=== PATIENT | female | born 1940 | race Caucasian/White ===

== ENCOUNTER → 2021-01-22 10:42 | Outpatient (BNVA) | payer MEDICARE, SELFPAY | PROVIDERS: PCP Internal Medicine; Visit Provider Hospitalist | DX: J45.909 Unspecified asthma, uncomplicated (principal); G47.33 Obstructive sleep apnea (adult) (pediatric); Z99.89 Dependence on other enabling machines and devices | CPT/HCPCS: 99212 ==

== ENCOUNTER 2023-03-04 10:23 | Outpatient (AMB) | payer MEDICARE, SELFPAY ==
--- NOTE | 2023-03-04 10:32 | MHC.OFFVIS ---
Intake Vital Signs 03/04/23 10:35 Weight 304 lb 3.806 oz BP 120/62 Blood Pressure Location Lt radial Position Sitting Pulse 77 Pulse Source Pulse Oximeter Pulse Oximetry (%) 93 Oxygen Delivery Method Room Air Intake Visit Reasons: Obstructive sleep apnea Intake Note: reports her CPAP machine is not working Allergies aspirin Allergy (Severe, Verified 03/04/23 10:38) Patient on coumadin celecoxib [Celebrex] Allergy (Severe, Verified 03/04/23 10:38) GI Upset Medication List - Last Reconciled 03/04/23 by Carrol Abarca LPN albuterol sulfate 90 mcg/actuation (ProAir HFA) 2 puffs inhalation Q6H PRN ascorbic acid (vitamin C) mg PO fluticasone propion-salmeterol 500-50 mcg/dose (Wixela Inhub) 1 inh inhalation BID 90 days fluticasone propion-salmeterol 500-50 mcg/dose (Advair Diskus) 1 inh inhalation BID furosemide 20 mg PO BID levothyroxine 125 mcg PO DAILY metoprolol succinate ER (Toprol XL) 50 mg PO DAILY omeprazole 20 mg PO BID potassium chloride ER 10 mEq PO BID warfarin 5 mg PO DAILY HPI HPI Comments History of Present Illness Details 01/22/2021 the patient is a 80-year-old woman with a known history of obstructive sleep apnea on CPAP in addition to asthma. she has responded well to Trelegy but he was very expensive. So currently she is taking Advair which is also very expensive for her. She cannot take it daily due to the fact that is too expensive. She does not have a rescue inhaler. She would like to hold off on getting 1 as well. She is worried about the cost. I will send her Wixela hoping that the generic Advair would be better option for her and so therefore she can take it daily. Can also provided with a rescue inhaler if she does decide. In regards her CPAP the CPAP therapy for her has been affecting beneficial. She does use it more than 4 hours a night. at this point the patient will continue with current therapy will switch over to Wixela and plan to follow-up in a year's time. When she does return plan to do a chest x-ray and pulmonary function studies per if however her symptoms worsen then we can also readdress and re-evaluate and earlier time. 03/04/2023 the patient is here for pulmonary follow-up visit. She is been having difficulties with her CPAP machine. It is been message in her that the engine is malfunctioning. Therefore the CPAP machine is broken beyond repair. She is a [employer], [employer]. Will request a replacement machine at this time. From a respiratory status the patient is doing well. She does have Advair at home. She does have issues with the cost. Will go ahead and send a prescription over to the pharmacy. However, if is too expensive will send generic either Wixela or AirDuo. I had requested a chest x-ray and also PFTs but the patient has not had them as of yet. The patient continues to have some dyspnea on exertion. [id number] severity. Also noticed some lower extremity edema. For now she will continue with low-sodium diet and also on diuretics. Will follow-up in 6 months. I did request that she can bring her new machine in order to adjusted if needed. [facility] Medical History (Updated 03/04/23 @ 10:56 by Joel Gaston MD) YOLANDA on CPAP Asthma Social History (Updated 01/22/21 @ 11:11 by MARINA Guerrero) Patient Tobacco Use Status: Never used Tobacco Review of Systems Const Denies night sweats and Reports weight gain ENT Denies change in voice, Denies lip swelling, Denies mouth pain, Reports nasal congestion, Reports nasal discharge and Denies tongue swelling Card Denies chest pain and Reports dyspnea on exertion Resp Reports cough and Reports dyspnea on exertion GI Denies abdominal pain Musc Reports arthralgias, Reports joint swelling and Reports limited range of motion Neuro Denies Neuro-related abnormal movements Psych Denies no additional complaints Brian/Lymph Denies easy bleeding and Denies lymphadenopathy Aller/Immun Denies lip swelling and Denies tongue swelling Physical Exam Vital Signs: Last Vital Signs Pulse 77 03/04/23 10:35 BP 120/62 03/04/23 10:35 Pulse Ox 93 03/04/23 10:35 Oxygen Delivery Method Room Air 03/04/23 10:35 Const General: alert Neck Neck: Yes normal visual inspection, Yes full ROM and Yes no lymphadenopathy Chest Chest palpation & inspection: normal inspection of the chest Resp Auscultation: diminished lung sounds Cardio Rate: regular rate Rhythm: regular rhythm Heart sounds: S1 normal heart sound present and S2 normal heart sound present GI Palpation (GI): Soft to palpation and nontender Auscultation: normal bowel sounds Skin General skin exam: rashes and/or lesions noted Assessment & Plan Assessment & Plan (1) Asthma: Code(s): J45.909 - Unspecified asthma, uncomplicated Qualifiers: Asthma complication type: uncomplicated Asthma persistence: persistent Asthma severity: moderate Qualified Code(s): J45.40 - Moderate persistent asthma, uncomplicated (2) YOLANDA on CPAP: Code(s): G47.33 - Obstructive sleep apnea (adult) (pediatric); Z99.89 - Dependence on other enabling machines and devices Plan continue Advair consider short-acting beta agonist continue CPAP therapy, current machine no longer functioning/engine trouble, will request a replacement APAP from her [facility] FELDMAN follow-up in 6 months Medications: New fluticasone propion-salmeterol 250-50 mcg/dose (Advair Diskus) 1 inh inhalation BID 90 days 3 ea 3RF J45.909 - Unspecified asthma, uncomplicated Coding Level of Care Code Est Pt Level 4 (87944) Diagnoses Moderate persistent asthma without complication J45.40 Asthma complication type: uncomplicated Asthma persistence: persistent Asthma severity: moderate YOLANDA on CPAP G47.33; Z99.89 Time Spent (min) 16
[2023-03-04 10:35] VITALS: BP 120/62; PULSE 77; O2SAT 93
== END 2023-03-04 11:07 | disposition home or self-care (01) ==
PROVIDERS: PCP Internal Medicine; Visit Provider Hospitalist
DX: J45.40 Moderate persistent asthma, uncomplicated (principal); G47.33 Obstructive sleep apnea (adult) (pediatric); Z99.89 Dependence on other enabling machines and devices
CPT/HCPCS: 99214

== ENCOUNTER → 2023-03-04 10:23 | Outpatient (BNVA) | payer MEDICARE, SELFPAY | PROVIDERS: PCP Internal Medicine; Visit Provider Hospitalist | DX: J45.40 Moderate persistent asthma, uncomplicated (principal); G47.33 Obstructive sleep apnea (adult) (pediatric); J45.909 Unspecified asthma, uncomplicated; Z79.01 Long term (current) use of anticoagulants; Z99.89 Dependence on other enabling machines and devices | CPT/HCPCS: 99212 ==

== ENCOUNTER 2023-09-07 10:40 | Outpatient (AMB) | payer MEDICARE, SELFPAY ==
[2023-09-07 10:56] VITALS: PULSE 73; O2SAT 94
--- NOTE | 2023-09-07 10:56 | MHC.OFFVIS ---
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 she has responded well to Trelegy but he was very expensive. So currently she is taking Advair which is also very expensive for her. She cannot take it daily due to the fact that is too expensive. She does not have a rescue inhaler. She would like to hold off on getting 1 as well. She is worried about the cost. I will send her Wixela hoping that the generic Advair would be better option for her and so therefore she can take it daily. Can also provided with a rescue inhaler if she does decide. In regards her CPAP the CPAP therapy for her has been affecting beneficial. She does use it more than 4 hours a night. at this point the patient will continue with current therapy will switch over to Wixela and plan to follow-up in a year's time. When she does return plan to do a chest x-ray and pulmonary function studies per if however her symptoms worsen then we can also readdress and re-evaluate and earlier time. 03/04/2023 the patient is here for pulmonary follow-up visit. She is been having difficulties with her CPAP machine. It is been message in her that the engine is malfunctioning. Therefore the CPAP machine is broken beyond repair. She is a [employer], [facility] [place]. Will request a replacement machine at this time. From a respiratory status the patient is doing well. She does have Advair at home. She does have issues with the cost. Will go ahead and send a prescription over to the pharmacy. However, if is too expensive will send generic either Wixela or AirDuo. I had requested a chest x-ray and also PFTs but the patient has not had them as of yet. The patient continues to have some dyspnea on exertion. Pivg-po-ztvysjbu severity. Also noticed some lower extremity edema. For now she will continue with low-sodium diet and also on diuretics. Will follow-up in 6 months. I did request that she can bring her new machine in order to adjusted if needed. 09/07/2023 the patient is here for a pulmonary follow-up visit. Overall the patient has been doing well. She did recently lose her in therefore she is still grieving some. Meantime respiratory cary she is doing okay. She has been still using her Advair Diskus. She only uses once a day which is fine. When she runs out of that she knows she needs to switch over to Wixela. I will give her a prescription on paper and she can get at the pharmacy whenever she is ready. She should do that once a day. She does not have a rescue inhaler at this point she does not want 1. She has not had imaging studies and well. I did offer her to get an x-ray but she would like to hold off at this time since she is doing well. If she has any respiratory symptoms she will call though that me know. In the meantime she has been using her CPAP at nighttime. The CPAP therapy has been affecting beneficial she does use it for more than 4 hours a night. The patient does use a fullface mask and get supplies from her [employer], [facility]. [facility] Medical History (Updated 03/04/23 @ 10:56 by Joel Gaston MD) YOLANDA on CPAP Asthma Social History (Updated 01/22/21 @ 11:11 by MARINA Guerrero) Patient Tobacco Use Status: Never used Tobacco Review of Systems Const Denies night sweats and Reports weight gain ENT Denies change in voice, Denies lip swelling, Denies mouth pain, Reports nasal congestion, Reports nasal discharge and Denies tongue swelling Card Denies chest pain and Reports dyspnea on exertion Resp Reports cough and Reports dyspnea on exertion GI Denies abdominal pain Musc Reports arthralgias, Reports joint swelling and Reports limited range of motion Neuro Denies Neuro-related abnormal movements Psych Denies no additional complaints Brian/Lymph Denies easy bleeding and Denies lymphadenopathy Aller/Immun Denies lip swelling and Denies tongue swelling Physical Exam Vital Signs: Last Vital Signs Pulse 73 09/07/23 10:56 Pulse Ox 94 09/07/23 10:56 Oxygen Delivery Method Room Air 09/07/23 10:56 Const General: alert Neck Neck: Yes normal visual inspection, Yes full ROM and Yes no lymphadenopathy Chest Chest palpation & inspection: normal inspection of the chest Resp Auscultation: diminished lung sounds Cardio Rate: regular rate Rhythm: regular rhythm Heart sounds: S1 normal heart sound present and S2 normal heart sound present GI Palpation (GI): Soft to palpation and nontender Auscultation: normal bowel sounds Skin General skin exam: rashes and/or lesions noted Assessment & Plan Assessment & Plan (1) Asthma: Code(s): J45.909 - Unspecified asthma, uncomplicated Category: Medical Qualifiers: Asthma complication type: uncomplicated Asthma persistence: persistent Asthma severity: moderate Qualified Code(s): J45.40 - Moderate persistent asthma, uncomplicated (2) YOLANDA on CPAP: Code(s): G47.33 - Obstructive sleep apnea (adult) (pediatric); Z99.89 - Dependence on other enabling machines and devices Category: Medical Plan continue Advair/wixela consider short-acting beta agonist continue CPAP therapy, current machine no longer functioning/engine trouble, will request a replacement APAP from her [facility] FELDM[facility] pt declined CXR at this time follow-up in 12 months Orders: Orders XR chest 2V Today J45.40 - Moderate persistent asthma, uncomplicated Medications: New fluticasone propion-salmeterol 250-50 mcg/dose (Wixela Inhub) 1 inh inhalation Q12H 60 ea 11RF 30 days Coding Level of Care Code Est Pt Level 4 (57999) Diagnoses Moderate persistent asthma without complication J45.40 Asthma complication type: uncomplicated Asthma persistence: persistent Asthma severity: moderate YOLANDA on CPAP G47.33; Z99.89 Time Spent (min) 17
== END 2023-09-07 11:15 | disposition home or self-care (01) ==
PROVIDERS: PCP Internal Medicine; Visit Provider Hospitalist
DX: J45.40 Moderate persistent asthma, uncomplicated (principal); G47.33 Obstructive sleep apnea (adult) (pediatric); Z99.89 Dependence on other enabling machines and devices
CPT/HCPCS: 99214

== ENCOUNTER → 2023-09-07 10:40 | Outpatient (BNVA) | payer MEDICARE, SELFPAY | PROVIDERS: PCP Internal Medicine; Visit Provider Hospitalist | DX: G47.33 Obstructive sleep apnea (adult) (pediatric) (principal); J45.40 Moderate persistent asthma, uncomplicated; Z99.89 Dependence on other enabling machines and devices | CPT/HCPCS: 99212 ==

== ENCOUNTER 2024-09-07 10:42 | Outpatient (AMB) | payer MEDICARE, SELFPAY ==
[2024-09-07 10:49] VITALS: BP 130/64; PULSE 67; O2SAT 95; BMI 56.2
--- NOTE | 2024-09-07 10:49 | A.OFFVIS_ITS ---
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 she has responded well to Trelegy but he was very expensive. So currently she is taking Advair which is also very expensive for her. She cannot take it daily due to the fact that is too expensive. She does not have a rescue inhaler. She would like to hold off on getting 1 as well. She is worried about the cost. I will send her Wixela hoping that the generic Advair would be better option for her and so therefore she can take it daily. Can also provided with a rescue inhaler if she does decide. In regards her CPAP the CPAP therapy for her has been affecting beneficial. She does use it more than 4 hours a night. at this point the patient will continue with current therapy will switch over to Wixela and plan to follow-up in a year's time. When she does return plan to do a chest x-ray and pulmonary function studies per if however her symptoms worsen then we can also readdress and re-evaluate and earlier time. 03/04/2023 the patient is here for pulmonary follow-up visit. She is been having difficulties with her CPAP machine. It is been message in her that the engine is malfunctioning. Therefore the CPAP machine is broken beyond repair. She is a [employer], [employer]. Will request a replacement machine at this time. From a respiratory status the patient is doing well. She does have Advair at home. She does have issues with the cost. Will go ahead and send a prescription over to the pharmacy. However, if is too expensive will send generic either Wixela or AirDuo. I had requested a chest x-ray and also PFTs but the patient has not had them as of yet. The patient continues to have some dyspnea on exertion. Exxp-fc-[id number] severity. Also noticed some lower extr emity edema. For now she will continue with low-sodium diet and also on diuretics. Will follow-up in 6 months. I did request that she can bring her new machine in order to adjusted if needed. 09/07/2023 the patient is here for a pulmonary follow-up visit. Overall the patient has been doing well. She did recently lose her in therefore she is still grieving some. Meantime respiratory cary she is doing okay. She has been still using her Advair Diskus. She only uses once a day which is fine. When she runs out of that she knows she needs to switch over to Wixela. I will give her a prescription on paper and she can get at the pharmacy whenever she is ready. She should do that once a day. She does not have a rescue inhaler at this point she does not want 1. She has not had imaging studies and well. I did offer her to get an x-ray but she would like to hold off at this time since she is doing well. If she has any respiratory symptoms she will call though that me know. In the meantime she has been using her CPAP at nighttime. The CPAP therapy has been affecting beneficial she does use it for more than 4 hours a night. The patient does use a fullface mask and get supplies from her [employer], [employer]. 09/07/2024 the patient is here for pulmonary follow-up visit. Overall the patient has been doing well. She is still grieving the loss of her but overall doing okay. She has been using the CPAP in the CPAP therapy has been affecting beneficial. She does use it for more than 4 hours a night. Her AHI slightly elevated at 4 episodes an hour. Her uses his definitely more than 4 hours a night. The patient will go ahead and have increased pressures with increasing the ramp to 6 in the APAP 8-18. If she has a hard time tolerating the new pressure she can always call and I can adjust them again. Also did adjust her temperature from 80 degrees F to 68 since she does not like the high temperature. She is also running out of water. If she continues to run out of water she can also decrease the humidity. From a respiratory status she is having hard time with breathing feeling some chest tightness and cough. She is having to use her albuterol more often. I will make sure to send a new albuterol in addition to that she responded well to Trelegy in the past. Hopefully is covered better she can go back on Trelegy. If she can not afford the Trelegy did Wixela will be just sufficient. [facility] Medical History (Updated 03/04/23 @ 10:56 by Joel Gaston MD) YOLANDA on CPAP Asthma Social History (Updated 09/07/24 @ 10:54 by Lanie Perdomo CMA) Alcohol intake: never Patient Tobacco Use Status: Never used Tobacco Review of Systems Const Denies chills, Reports fatigue, Denies fever(s), Reports weight gain and Denies weight loss ENT Denies dizziness, Denies lip swelling and Denies tongue swelling Card Denies chest pain, Reports leg edema, Denies lightheadedness, Denies palpitations, Reports dyspnea on exertion, Denies orthopnea and Denies other Resp Reports cough and Reports dyspnea on exertion GI Denies hematochezia and Denies change in stool character Musc Denies abnormal gait, Denies muscle weakness, Denies numbness, Denies radiating pain into limb and Denies tingling Neuro Denies abnormal gait, Denies dizziness, Denies numbness and Denies tingling Psych Denies no additional complaints Endo Reports fatigue and Denies palpitations Brian/Lymph Denies easy bleeding and Denies lymphadenopathy Aller/Immun Denies lip swelling and Denies tongue swelling Physical Exam Vital Signs: Last Vital Signs Pulse 67 09/07/24 10:49 BP 130/64 09/07/24 10:49 Pulse Ox 95 09/07/24 10:49 Oxygen Delivery Method Room Air 09/07/24 10:49 BMI result Body Mass Index 56.2 Const General: alert Neck Neck: Yes normal visual inspection, Yes full ROM and Yes no lymphadenopathy Chest Chest palpation & inspection: normal inspection of the chest Resp Auscultation: diminished lung sounds Cardio Rate: regular rate Rhythm: regular rhythm Heart sounds: S1 normal heart sound present and S2 normal heart sound present GI Palpation (GI): Soft to palpation and nontender Auscultation: normal bowel sounds Skin General skin exam: rashes and/or lesions noted Assessment & Plan Assessment & Plan (1) Asthma: Code(s): J45.909 - Unspecified asthma, uncomplicated Category: Medical Qualifiers: Asthma complication type: uncomplicated Asthma persistence: persistent Asthma severity: moderate Qualified Code(s): J45.40 - Moderate persistent asthma, uncomplicated (2) YOLANDA on CPAP: Code(s): G47.33 - Obstructive sleep apnea (adult) (pediatric); Z99.89 - Dependence on other enabling machines and devices Category: Medical Plan stop wixela start Trelegy start short-acting beta agonist as needed continue CPAP therapy, increase 6-16 to 8-18 pt declined CXR at this time follow-up in 12 months Medications: New gmzbpxjleuh-ajgotivet-rxwvnbjv 200-62.5-25 mcg (Trelegy Ellipta) 1 inh inhalation DAILY 60 ea 12RF 30 days Changed From albuterol sulfate 90 mcg/actuation (ProAir HFA) 2 puffs inhalation Q6H PRN To albuterol sulfate 90 mcg/actuation 2 puffs inhalation Q6H PRN 8.5 grams 7RF shortness of breath or wheezing Coding Level of Care Code Est Pt Level 4 (48040) Complex EM visit Add On G2211 Diagnoses Moderate persistent asthma without complication J45.40 Asthma complication type: uncomplicated Asthma persistence: persistent Asthma severity: moderate YOLANDA on CPAP G47.33; Z99.89 Time Spent (min) 17
--- OUTSIDE RECORDS SUMMARY | 2024-09-07 12:19 | XMS_ITS | Clinical Summary ---
Author Organization [address] [place] [address] [place] [phone] Phone Care Team Providers Care Disability Benefits Specialist Name Role Phone Homer Taylor DO Primary Care Provider [phone] Allergies Active Allergy Reactions Criticality Noted Date Comments Celecoxib 08/18/2024 Medications multivitamin tablet Take 1 tablet by mouth 1 (one) time each day. Active aspirin 81 mg chewable tablet Chew 1 tablet (81 mg total) 1 (one) time each day. 90 tablet 2 5 Active furosemide (LASIX) 20 mg tablet Take 1 tablet (20 mg total) by mouth 1 (one) time each day. 180 tablet 3 5 Active levothyroxine (SYNTHROID, LEVOTHROID) 150 mcg tablet Take 1 tablet (150 mcg total) by mouth 1 (one) time each day before breakfast. 90 tablet 3 5 Active metoprolol succinate (TOPROL-XL) 25 mg 24 hr tablet Take 2 tablets (50 mg total) by mouth 1 (one) time each day. Do not crush or chew. 90 tablet 3 5 Active omeprazole (PriLOSEC) [address] capsule Take 1 capsule (20 mg total) by mouth 2 (two) times a day. Do not crush or chew. 90 capsule 3 5 Active warfarin (COUMADIN) 5 mg tablet Take 1 tablet (5 mg total) by mouth 1 (one) time each day with dinner. See admin directions 90 tablet 3 5 Active furosemide (LASIX) 20 mg tablet TAKE 4 TABLETS BY MOUTH EVERY MORNING AND 3 TABLETS EVERY EVENING. 540 tablet 1 5 08/19/19 Discontinu ed(Reorder ) metoprolol succinate (TOPROL-XL) 25 mg 24 hr tablet Take 1 tablet (25 mg total) by mouth 1 (one) time each day. Do not crush or chew. 08/19/19 Discontinu ed(Reorder ) aspirin 81 mg chewable tablet Chew 1 tablet (81 mg total) 1 (one) time each day. 08/19/19 Discontinu ed(Reorder ) warfarin (COUMADIN) 5 mg tablet Take 1 tablet (5 mg total) by mouth 1 (one) time each day with dinner. See admin directions 08/19/19 Discontinu ed(Reorder ) omeprazole (PriLOSEC) [address] capsule Take 1 capsule (20 mg total) by mouth 2 (two) times a day. Do not crush or chew. 08/19/19 Discontinu ed(Reorder ) levothyroxine (SYNTHROID, LEVOTHROID) 150 mcg tablet Take 1 tablet (150 mcg total) by mouth 1 (one) time each day before breakfast. 08/19/19 Discontinu ed(Reorder ) metoprolol succinate (TOPROL-XL) 25 mg 24 hr tablet Take 2 tablets (50 mg total) by mouth 1 (one) time each day. Do not crush or chew. 90 tablet 3 5 08/19/19 Discontinu ed(Reorder ) Active Problems Problem Noted Date Diagnosed Date Chronic diastolic congestive heart failure (CMS/[facility] V24, CMS/[facility] V28) 08/18/2024 Assessment & Plan (08/18/2024 12:55 PM EDT): She appears slightly more breathless compared to a year ago. Volume status appears the same as before. Will continue same dose furosemide. Will check BMP and BNP. Heart failure is mostly due to her morbid obesity which causing patient prosthesis mismatch. Most recent echocardiogram has shown mildly to moderately elevated pulmonary artery pressure. She was prescribed a weight loss medication by Dr. Taylor previously and the prescription was denied by the insurance. I will discuss with Dr. Taylor about the situations. She would benefit from GLP 1 agonist. Orders: ECG 12 lead B-type natriuretic peptide; Future Basic metabolic panel; Future Magnesium; Future Presence of prosthetic heart valve 03/27/2024 Assessment & Plan (08/18/2024 12:55 PM EDT): She is known to have patient prosthesis mismatch for quite many years since her weight has gone way up. We did 2 fluoroscopies including recent one. The valve function itself was normal. The elevated gradient again is from the patient prosthesis mismatch. The willis is the weight loss. She is on warfarin. Encounters Date Type Department Care Team Description 09/01/2024 Anticoagulation - Warfarin Visit [facility] [address] [facility] [address] [place] [address] Mary Roldan MD Presence of prosthetic heart valve (Primary Dx) 08/25/2024 Anticoagulation - Warfarin Visit [facility] [address] [place] [address] Mary Roldan MD Presence of prosthetic heart valve (Primary Dx) 08/18/2024 10:50 AM EDT Office Visit [facility] [address] [place] [address] Mary Roldan MD Chronic diastolic congestive heart failure (CMS/HCC V24, CMS/HCC V28) (Primary Dx); Presence of prosthetic heart valve 08/18/2024 Anticoagulation - Warfarin Visit [facility] [address] [place] [address] Mary Roldan MD Presence of prosthetic heart valve (Primary Dx) 08/14/2024 Anticoagulation - Warfarin Visit [facility] [address] [place] [address] Mary Roldan MD Presence of prosthetic heart valve (Primary Dx) 08/07/2024 Anticoagulation - Warfarin Visit [facility] [address] [place] [address] Mary Roldan MD Presence of prosthetic heart valve (Primary Dx) 07/31/2024 Anticoagulation - Warfarin Visit [facility] [address] [place] [address] Mary Roldan MD Presence of prosthetic heart valve (Primary Dx) 07/24/2024 Anticoagulation - Warfarin Visit [facility] [address] [place] [address] Mary Roldan MD Presence of prosthetic heart valve (Primary Dx) 07/17/2024 Anticoagulation - Warfarin Visit [facility] [address] [place] [address] Mary Roldan MD Presence of prosthetic heart valve (Primary Dx) 07/11/2024 Anticoagulation - Warfarin Visit [facility] [address] [place] [address] Mary Roldan MD Presence of prosthetic heart valve (Primary Dx) 07/03/2024 Anticoagulation - Warfarin Visit [facility] [address] [place] [address] Mary Roldan MD Presence of prosthetic heart valve (Primary Dx) 06/27/2024 Anticoagulation - Warfarin Visit [facility] [address] [place] [address] Mary Roldan MD Presence of prosthetic heart valve (Primary Dx) 06/19/2024 Anticoagulation - Warfarin Visit [facility] [address] [place] [address] Mary Roldan MD Presence of prosthetic heart valve (Primary Dx) 06/12/2024 Anticoagulation - Warfarin Visit [facility] [address] [place] [address] Mary Roldan MD Presence of prosthetic heart valve (Primary Dx) from Last 3 Months Surgical History Surgery Date Site/Laterality Comments AORTIC VALVE REPLACEMENT 1999 PROCEDURE: HISTORICAL AORTIC VALVE REPL TOTAL KNEE ARTHROPLASTY 2009 Right PROCEDURE: SD ARTHRP KNE CONDYLE&PLATU MEDIAL&LAT COMPARTMENTS HYSTERECTOMY PROCEDURE: HISTORICAL TOTAL HYSTERECTOMY WITH BSO APPENDECTOMY PROCEDURE: SD APPENDECTOMY Medical History Medical History Date Comments Hypothyroidism 06/19/2017 DX:Hypothyroidis m S/P aortic valve replacement 06/19/2017 DX: S/P aortic valve replacement; COMMENT: Chronic anticoagulation, st katie valve GERD (gastroesophageal reflux disease) 06/19/2017 DX:GERD (gastroesophageal reflux disease) MVP (mitral valve prolapse) 06/19/2017 DX:M [employer] (mitral valve prolapse) Total knee replacement status 06/19/2017 DX :Total knee replacement status Morbid obesity (CMS/HCC V24, CMS/HCC V28) 06/19/2017 DX:Morbid obesity (HCC) Family History Medical History Relation Name Comments Esophageal cancer Brother Prostate cancer Father Diabetes Mother Breast cancer Sister Relation Name Status Comments Brother Father Mother Sister Social History Tobacco Use Types Packs/Day Years Used Date Smoking Tobacco: Former Smokeless Tobacco: Never Alcohol Use Standard Drinks/Week Comments No 0 (1 standard drink = 0.6 oz pur e alcohol) Comments Unknown Sex and Gender Information Value Date Recorded Sex Assigned at Not on file Legal Sex Female 9:05 PM EST Gender Identity Not on file Sexual Orientation Not on file Obstetrics History Last Filed Vital Signs Vital Sign Reading Time Taken Comments Blood Pressure 130/66 08/18/2024 10:51 AM EDT Pulse 70 08/18/2024 10:51 AM EDT Temperature - - Respiratory Rate - - Oxygen Saturation 95% 08/18/2024 10:51 AM EDT Inhaled Oxygen Concentration - - Weight 139 kg (306 lb) 08/18/2024 10:51 AM EDT Height 152.4 cm (5') 08/18/2024 10:51 AM EDT Body Mass Index 59.76 08/18/2024 10:51 AM EDT Plan of Treatment Upcoming Encounters Date Type Department Care Team (Late st Contact Info) Description 03/05/2025 10:40 AM EDT Office Visit [facility] [address] [facility] [address] [place] [phone] Jill Guy NP [address] [place] [address] Health Maintenance Due Date Last Done Comments Pneumococcal Vaccine: 50+ Years (1 of 2 - PCV) 1961 Zoster Vaccines (1 of 2) 1992 Cholesterol Screening (Lipid Panel) 04/11/2022 Depression Screening 04/11/2022 Falls Risk Assessment 04/11/2022 Medicare Annual Wellness Visit 04/11/2022 Osteoporosis Screening (Bone Density Screening) 04/11/2022 Social Influencers of Health Screening 04/11/2022 COVID-19 Vaccine ( season) 2024 03/12/2021, 07/17/2020, 06/26/2020 Hypertension/CHF/CAD Annual BMP Blood Test 08/18/2025 08/18/2024 DTaP,Tdap,and Td Vaccines (2 - Td or Tdap) 02/19/2032 02/18/2022 RSV Immunization Adult Patients Completed 03/19/2023 Influenza Vaccine Completed 02/17/2024, , 02/18/2022, Additional history exists HIB Vaccines Aged Out No longer eligi ble based on patient's age to complete this topic HPV Vaccines Aged Out No longer eligi ble based on patient's age to complete this topic Hepatitis A Vaccines Aged Out No long er eligible based on patient's age to complete this topic Hepatitis B Vaccines Aged Out No long er eligible based on patient's age to complete this topic IPV Vaccines Aged Out No longer eligi ble based on patient's age to complete this topic MMR Vaccines Aged Out No longer eligi ble based on patient's age to complete this topic Meningococcal ACWY Vaccine Aged Out N o longer eligible based on patient's age to complete this topic Meningococcal B Vaccine Aged Out No l onger eligible based on patient's age to complete this topic RSV Immunization Patients Under 20 months Aged Out No longer eligible based on patient's age to complete this topic Varicella Vaccines Aged Out No longer eligible based on patient's age to complete this topic Procedures Procedure Name Priority Date/Time Associated Diagnosis Comments PROTHROMBIN TIME WITH INR Routine 09/01/2024 PROTHROMBIN TIME WITH INR Routine 08/25/2024 MAGNESIUM Routine 08/18/2024 11:45 AM EDT Chronic diastolic congestive heart failure (CMS/HCC V24, CMS/HCC V28) BASIC METABOLIC PANEL Routine 08/18/2024 11:45 AM EDT Chronic diastolic congestive heart failure (CMS/HCC V24, CMS/HCC V28) B-TYPE NATRIURETIC PEPTIDE Routine 08/18/2024 11:45 AM EDT Chronic diastolic congestive heart failure (CMS/HCC V24, CMS/HCC V28) ECG 12-LEAD Routine 08/18/2024 11:00 AM EDT Chronic diastolic congestive heart failure (CMS/HCC V24, CMS/HCC V28) PROTHROMBIN TIME WITH INR Routine 08/18/2024 PROTHROMBIN TIME WITH INR Routine 08/14/2024 PROTHROMBIN TIME WITH INR Routine 08/07/2024 PROTHROMBIN TIME WITH INR Routine 07/31/2024 PROTHROMBIN TIME WITH INR Routine 07/24/2024 PROTHROMBIN TIME WITH INR Routine 07/17/2024 PROTHROMBIN TIME WITH INR Routine 07/11/2024 PROTHROMBIN TIME WITH INR Routine 07/03/2024 PROTHROMBIN TIME WITH INR Routine 06/27/2024 PROTHROMBIN TIME WITH INR Routine 06/19/2024 PROTHROMBIN TIME WITH INR Routine 06/12/2024 from Last 3 Months Results * Prothrombin time with INR (09/01/2024) Only the most recent of13 resultswithin the time period is included. INR 2.0 Prothrombin Time POC Blood Venous blood specimen / Unknown 09/01/2024 Alisha Hazel MD LAB BLOOD ORDERABLES Gricelda l Result * (ABNORMAL) B-type natriuretic peptide (08/18/2024 11:45 AM EDT) BNP 142(H) <=100 pcg/mL LAB CHEMISTRY METHOD 08/18/2024 1:26 PM EDT [facility] Blood Venous blood specimen / Unknown Venipuncture / Unknown 08/18/2024 11:45 AM EDT 08/18/2024 12:23 PM EDT Mary Roldan MD LAB BLOOD ORDERABLES Final Resul t Performing Organization Address [facility]/ZIP Co de Phone Number [facility] [address] [place] [address], * Magnesium (08/18/2024 11:45 AM EDT) Pathologist [facility] Magnesium 2.3 1.9 - 2.6 mg/dL LAB CHEMISTRY METHOD 08/18/2024 1:37 PM EDT [facility] Blood Venous blood specimen / Unknown Venipuncture / Unknown 08/18/2024 11:45 AM EDT 08/18/2024 12:22 PM EDT Mary Roldan MD LAB BLOOD ORDERABLES Final Resul t [facility] [address] [place] [address], * (ABNORMAL) Basic metabolic panel (08/18/2024 11:45 AM EDT) Pathologist [facility] Sodium 141 133 - 145 mmol/L LAB CHEMISTRY METHOD 08/18/2024 1:37 PM EDT [facility] Potassium 3.9 3.5 - 5.5 mmol/L LAB CHEMISTRY METHOD 08/18/2024 1:37 PM T [facility] Chloride 104 96 - 110 mmol/L LAB CHEMISTRY METHOD 08/18/2024 1:37 PM [facility] CO2 29 21 - 32 mmol/L LAB CHEMISTRY METHOD 08/18/2024 1:37 PM [facility] Anion Gap 8 3 - 11 LAB CHEMISTRY METHOD 08/18/2024 1:37 PM [facility] Glucose 102(H) 70 - 100 mg/dL LAB CHEMISTRY METHOD 08/18/2024 1:37 PM [facility] BUN 15 5 - 25 mg/dL LAB CHEMISTRY METHOD 08/18/2024 1:37 PM [facility] Creatinine 1.13(H) 0.50 - 1.10 mg/dL LAB CHEMISTRY METHOD 08/18/2024 1:37 PM [facility] eGFR 49(L) >=60 mL/min/1. 73m2 LAB CHEMISTRY METHOD 08/18/2024 1:37 PM [facility] Comment:Calculation based on the??Chronic Kidney Disease Epidemiology Collaboration (CKD-EPI) equation refit??without adjustment for race. BUN/Creatinine Ratio 13.3 LAB CHEMISTRY METHOD 08/18/2024 1:37 PM [facility] Calcium 8.6 8.5 - 10.5 mg/dL LAB CHEMISTRY METHOD 08/18/2024 1:37 PM [facility] Blood Venous blood specimen / Unknown Venipuncture / Unknown 08/18/2024 11:45 AM EDT 08/18/2024 12:22 PM EDT us Mary Roldan MD LAB BLOOD ORDERABLES Final Resul t [facility] [address] [place] [address], * ECG 12 lead (08/18/2024 11:00 AM EDT) Ventricular Rate ECG 70 BPM GEMUSE Atrial Rate 70 BPM GEMUSE P-R Interval 386 ms GEMUSE QRS Duration 90 ms GEMUSE Q-T Interval 424 ms GEMUSE QTc 457 ms GEMUSE P Wave Au Train 61 degrees GEMUSE R Au Train 63 degrees GEMUSE T Au Train 72 degrees GEMUSE ECG Interpretation Sinus rhythm with 1st degree A-V block with Premature atrial complexes Otherwise normal ECG When compared with ECG of 26-MAR-2009 15:05, Premature atrial complexes are now Present Confirmed by Enoc ROLDAN YUFENG ([id number]) on 08/18/2024 12:55:54 PM GEMUSE 08/18/2024 11:0 0 AM EDT 08/18/2024 12:55 PM EDT us Mary Roldan MD ECG ORDERABLES Final Result GEMUSE from Last 3 Months Insurance [facility]IC[facility] Care Teams Disability Benefits Specialist Relationship Specialty Start Date End Date Homer Taylor DO [address] [place] [id number] PCP - General Internal Medicine 08/18/24
== END 2024-09-07 11:26 | disposition home or self-care (01) ==
LOC: HO.HPS 10:43
PROVIDERS: PCP Internal Medicine; Visit Provider Hospitalist
DX: J45.40 Moderate persistent asthma, uncomplicated (principal); G47.33 Obstructive sleep apnea (adult) (pediatric); Z99.89 Dependence on other enabling machines and devices
CPT/HCPCS: 99214; G2211

== ENCOUNTER → 2024-09-07 10:42 | Outpatient (BNVA) | payer MEDICARE, SELFPAY | PROVIDERS: PCP Internal Medicine; Visit Provider Hospitalist | DX: J45.40 Moderate persistent asthma, uncomplicated (principal); G47.33 Obstructive sleep apnea (adult) (pediatric); Z99.89 Dependence on other enabling machines and devices | CPT/HCPCS: 99212 ==

== ENCOUNTER 2025-04-02 10:45 | Outpatient (AMB) | payer MEDICARE, SELFPAY ==
[2025-04-02 10:49] VITALS: BP 130/70; PULSE 67; O2SAT 96; BMI 54.0
--- NOTE | 2025-04-02 10:49 | A.OFFVIS_ITS ---
Vital Signs 04/02/25 10:49 Height 5 ft 2 in Weight 295 lb 6.711 oz BMI 54.0 BP 130/70 Blood Pressure Location Lt brachial Position Sitting Pulse 67 Pulse Source Pulse Oximeter Pulse Oximetry (%) 96 Oxygen Delivery Method Room Air Intake Visit Reasons: Obstructive sleep apnea Database Developer Required: No Accompanied by: Self / Same As Patient Allergies aspirin Allergy (Severe, Verified 04/02/25 10:53) Patient on coumadin celecoxib (Celebrex) Allergy (Severe, Verified 04/02/25 10:53) GI Upset HPI Comments Details: The patient is a 84-year-old woman with a known history of obstructive sleep apnea on CPAP in addition to asthma. she has responded well to Trelegy but he was very expensive. So currently she is taking Advair which is also very expensive for her. She cannot take it daily due to the fact that is too expensive. She does not have a rescue inhaler. She would like to hold off on getting 1 as well. She is worried about the cost. I will send her Wixela hoping that the generic Advair would be better option for her and so therefore she can take it daily. Can also provided with a rescue inhaler if she does decide. In regards her CPAP the CPAP therapy for her has been affecting beneficial. She does use it more than 4 hours a night. at this point the patient will continue with current therapy will switch over to Wixela and plan to follow-up in a year's time. When she does return plan to do a chest x-ray and pulmonary function studies per if however her symptoms worsen then we can also readdress and re-evaluate and earlier time. 03/04/2023 the patient is here for pulmonary follow-up visit. She is been having difficulties with her CPAP machine. It is been message in her that the engine is malfunctioning. Therefore the CPAP machine is broken beyond repair. She is a [employer] [employer]. Will request a replacement machine at this time. From a respiratory status the patient is doing well. She does have Advair at home. She does have issues with the cost. Will go ahead and send a prescription over to the pharmacy. However, if is too expensive will send generic either Wixela or AirDuo. I had requested a chest x-ray and also PFTs but the patient has not had them as of yet. The patient continues to have some dyspnea on exertion. [id number] severity. Also noticed some lower extremity edema. For now she will continue with low-sodium diet and also on diuretics. Will follow-up in 6 months. I did request that she can bring her new machine in order to adjusted if needed. 09/07/2023 the patient is here for a pulmonary follow-up visit. Overall the patient has been doing well. She did recently lose her in therefore she is still grieving some. Meantime respiratory cary she is doing okay. She has been still using her Advair Diskus. She only uses once a day which is fine. When she runs out of that she knows she needs to switch over to Wixela. I will give her a prescription on paper and she can get at the pharmacy whenever she is ready. She should do that once a day. She does not have a rescue inhaler at this point she does not want 1. She has not had imaging studies and well. I did offer her to get an x-ray but she would like to hold off at this time since she is doing well. If she has any respiratory symptoms she will call though that me know. In the meantime she has been using her CPAP at nighttime. The CPAP therapy has been affecting beneficial she does use it for more than 4 hours a night. The patient does use a fullface mask and get supplies from her [employer] [employer] [facility] [employer]. 09/07/2024 the patient is here for pulmonary follow-up visit. Overall the patient has been doing well. She is still grieving the loss of her but overall doing okay. She has been using the CPAP in the CPAP therapy has been affecting beneficial. She does use it for more than 4 hours a night. Her AHI slightly elevated at 4 episodes an hour. Her uses his definitely more than 4 hours a night. The patient will go ahead and have increased pressures with increasing the ramp to 6 in the APAP 8-18. If she has a hard time tolerating the new pressure she can always call and I can adjust them again. Also did adjust her temperature from 80 degrees F to 68 since she does not like the high temperature. She is also running out of water. If she continues to run out of water she can also decrease the humidity. From a respiratory status she is having hard time with breathing feeling some chest tightness and cough. She is having to use her albuterol more often. I will make sure to send a new albuterol in addition to that she responded well to Trelegy in the past. Hopefully is covered better she can go back on Trelegy. If she can not afford the Trelegy did Wixela will be just sufficient. 04/02/2025 the patient is here for pulmonary follow-up visit. Overall the patient is doing well. She continues to tolerate the APAP. The pressure 8-18 seems to work well for her. Although the AHI still slightly elevated to 4 events an hour. She does use a fullface mask and she seems to be tolerating that well. She is resting well in the Jo[place] score is within normal limits. Therefore, I would not adjust the pressures any longer. Seems to be working just fine for her. The last time we adjusted her machine she had difficulties with the so therefore will just leave it alone. From a breathing standpoint she does well with the Trelegy although is expensive. She is currently using Wixela and seems to be working just fine. Will continue the Wixela for now. If her symptoms worsen she wants to use the Trelegy she can always call and I can send her a script. She was wondering about pulmonary rehab. Will go ahead and order pulmonary function studies for the springtime since she does not want to do rehab over the winter. Based on the pulmonary function studies we can then order pulmonary rehab for her. Otherwise the patient is doing well will follow- up in the spring if any issues arise she can always call for an earlier evaluation and recommendations. [facility] Medical History (Updated 03/04/23 @ 10:56 by Joel Gaston MD) YOLANDA on CPAP Asthma Social History Alcohol intake: never Patient Tobacco Use Status: Never used Tobacco Review of Systems Const Denies chills, Reports fatigue, Denies fever(s), Reports weight gain and Denies weight loss ENT Denies dizziness, Denies lip swelling and Denies tongue swelling Card Denies chest pain, Reports leg edema, Denies lightheadedness, Denies palpitations, Reports dyspnea on exertion, Denies orthopnea and Denies other Resp Reports cough and Reports dyspnea on exertion GI Denies hematochezia and Denies change in stool character Musc Denies abnormal gait, Denies muscle weakness, Denies numbness, Denies radiating pain into limb and Denies tingling Neuro Denies abnormal gait, Denies dizziness, Denies numbness and Denies tingling Psych Denies no additional complaints Endo Reports fatigue and Denies palpitations Brian/Lymph Denies easy bleeding and Denies lymphadenopathy Aller/Immun Denies lip swelling and Denies tongue swelling Physical Exam Vital Signs: Last Vital Signs Pulse 67 04/02/25 10:49 BP 130/70 04/02/25 10:49 Pulse Ox 96 04/02/25 10:49 Oxygen Delivery Method Room Air 04/02/25 10:49 BMI result Body Mass Index 54.0 Const General: alert Neck Neck: Yes normal visual inspection, Yes full ROM and Yes no lymphadenopathy Chest Chest palpation & inspection: normal inspection of the chest Resp Auscultation: diminished lung sounds Cardio Rate: regular rate Rhythm: regular rhythm Heart sounds: S1 normal heart sound present and S2 normal heart sound present GI Palpation (GI): Soft to palpation and nontender Auscultation: normal bowel sounds Skin General skin exam: rashes and/or lesions noted Assessment & Plan Assessment & Plan (1) Asthma: Code(s): J45.909 - Unspecified asthma, uncomplicated Category: Medical Qualifiers: Asthma complication type: uncomplicated Asthma persistence: persistent Asthma severity: moderate Qualified Code(s): J45.40 - Moderate persistent asthma, uncomplicated (2) YOLANDA on CPAP: Code(s): G47.33 - Obstructive sleep apnea (adult) (pediatric); Z99.89 - Dependence on other enabling machines and devices Category: Medical Plan continue Wixela start short-acting beta agonist as needed continue CPAP therapy, 8-18 PFTs consider Pulmonary rehab, would like to wait till the Spring follow-up in 6 months Orders: Orders PFT pulmonary function test 08/08/25 J45.40 - Moderate persistent asthma, uncomplicated Coding Level of Care Code Complex visit Add On G2211 Diagnoses Moderate persistent asthma without complication J45.40 Asthma complication type: uncomplicated Asthma persistence: persistent Asthma severity: moderate YOLANDA on CPAP G47.33; Z99.89 Time Spent (min) 17
== END 2025-04-02 11:13 | disposition home or self-care (01) ==
LOC: HO.HPS 10:46
PROVIDERS: PCP Internal Medicine; Visit Provider Hospitalist
DX: J45.40 Moderate persistent asthma, uncomplicated (principal); G47.33 Obstructive sleep apnea (adult) (pediatric); Z99.89 Dependence on other enabling machines and devices
CPT/HCPCS: 99213; G2211

== ENCOUNTER → 2025-04-02 10:45 | Outpatient (BNVA) | payer MEDICARE, SELFPAY | PROVIDERS: PCP Internal Medicine; Visit Provider Hospitalist | DX: G47.33 Obstructive sleep apnea (adult) (pediatric) (principal); Z99.89 Dependence on other enabling machines and devices; J45.40 Moderate persistent asthma, uncomplicated | CPT/HCPCS: 99212 ==